=== PATIENT | female | born 1930 | race Caucasian/White ===

== ENCOUNTER → 2018-08-04 08:58 | Outpatient (CLI) | payer MEDICARE, OTHER | END | disposition home or self-care (01) | LOC: D.RAD 08:00 | DX: R19.4 Change in bowel habit (principal) ==

== ENCOUNTER → 2018-08-14 10:06 | Outpatient (CLI) | payer MEDICARE, OTHER | END | disposition home or self-care (01) | LOC: D.CT 10:06 | DX: R10.9 Unspecified abdominal pain (principal) ==

== ENCOUNTER → 2018-08-23 09:46 | Outpatient (CLI) | payer MEDICARE, OTHER | END | disposition home or self-care (01) | LOC: D.US 09:46 | DX: N28.1 Cyst of kidney, acquired (principal) ==

== ENCOUNTER → 2018-09-12 07:35 | Outpatient (CLI) | payer MEDICARE, OTHER | END | disposition home or self-care (01) | LOC: D.MRI 07:35 → EDSEX 07:35 → D.MRI 08:00 | DX: N28.9 Disorder of kidney and ureter, unspecified (principal) ==

== ENCOUNTER 2020-06-19 11:48 | Day surgery (SDC) | payer MEDICARE, OTHER ==
[~2020-06-19] VITALS: Ht 175.3 cm; Wt 76.7 kg
--- NOTE | ~2020-06-19 | HEMODYNAMI ---
PATIENT:PRIYANKA WASHINGTON MEDICAL RECORD: [id number] : 32 LOCATION:[facility] ADMISSION DATE: 06/19/20 Generatedon:06/19/202015:13 Patient name: PRIYANKA WASHINGTON Patient #: [id number] SSN: : 1930 Date of study: 06/19/2020 Page: Of Hemodynamic Procedure Report Patient Data Patient Demographics Procedure consent was obtained First Name: PRIYANKA Gender: Male Last Name: FELIX : 1930 Middle Initial: T Age: 89 year(s) Patient #: [id number] Race: Unknown Additional ID: [id number] Contact details Address: [address] [place] [address] State: [place] City: [place] Zip code: [address] Past Medical History Allergies: No known allergies Admission Admission Data Admission Date: 06/19/2020 Admission Time: 11:48 Procedure Procedure Types Cath Procedure Diagnostic Procedure PPM/ICD PPM Dual Implant Sedation Charges Moderate Sedation up to 15 minutes Procedure Description Procedure Date Procedure Date: 06/19/2020 Procedure Start Time: 14:46 Procedure Staff Name Function Good Fraire MD Performing Physician Kesha Ramos RT Monitor Evelyne Pink RT Scrub Mesfin Francisco MD Assisting physician Christophe Hough RN Nurse Procedure Data Cath Procedure Fluoroscopy Diagnostic fluoroscopy Total fluoroscopy Time: 1.4 time: 1.4 min min Diagnostic fluoroscopy Total fluoroscopy dose: 27 dose: 27 mGy mGy Estimated blood loss: 10 ml Procedure Complications No complications Procedure Medications Medication Administration Route Dosage Oxygen etCO2 Nasal cannula 2 l/min Lidocaine 1% added to field 20 Ancef (1Gm/50ml NS) I.V.P.B 1 g Ancef Irrigation Topical 1 g (1gm/500ml NS) 0.9% NaCl I.V. 50 ml/hr Versed I.V. 2 mg Fentanyl I.V. 50 mcg Versed I.V. 1 mg Fentanyl I.V. 50 mcg Versed I.V. 1 mg Hemodynamics Rest Heart Rate: 49 (bpm) Snapshots Pre Cath Intra NCS Post Cath Vital Signs Time Heart Resp SPO2 etCO2 NIBP (mmHg) Rhythm Pain Sedation Rate (ipm) (%) (mmHg) Status Level (bpm) 14:32:36 47 16 99 0 175/79(152) SB (Missing) 10(A) 14:37:57 50 25 96 0 146/78(95) SB (Missing) 10(A) 14:43:04 47 12 99 32.5 132/61(101) SB (Missing) 10(A) 14:47:16 50 14 93 0 144/69(113) SB (Missing) 9(A) 14:51:32 49 15 98 0 129/66(105) SB (Missing) 9(A) 14:55:42 56 10 98 32.5 146/73(104) SB (Missing) 9(A) 14:59:54 80 23 97 26.6 121/82(101) SB (Missing) 9(A) 15:04:02 62 10 98 8.8 124/68(114) SB (Missing) 9(A) 15:08:06 79 13 98 24.3 110/79(94) SB (Missing) 10(A) Medications Time Medication Route Dose Verified Delivered Reason Notes Effectiv eness by by 14:38:58 Oxygen etCO2 2 Good Cookory used for Nasal l/min [facility] John procedure cannula MD PARK 14:39:35 Lidocaine added 20ml Good Spiritism for local 1% to vial St Clint Francisco MD anesthetic field x 2 14:39:46 Ancef I.V.P.B 1 g Good Garciaie used for (1Gm/50ml Juno Hough deputy of counter intelligence NS) 14:39:53 Ancef Topical 1 g Good Buffie used for Irrigation JunoClint Hough [employer] of counter [employer] (1gm/500ml NS) 14:40:07 0.9% NaCl I.V. 50 Good Garciaie Per ml/hr St Clint Hough RN physician 14:45:47 Versed I.V. 2 mg Good Buffie for Juno Hough RN sedation 14:45:52 Fentanyl I.V. 50 Good Buffie for mcg JunoClint Hough RN sedation 14:50:35 Versed I.V. 1 mg Good Buffie for JunoClint Hough RN sedation 14:50:40 Fentanyl I.V. 50 Good [facility] [place] Hough RN sedation 14:55:01 Versed I.V. 1 mg Good S[address] for St Clint Hough RN sedation Procedure Log Time Note 14:09:55 Informed consent obtained and on chart 14:10:20 Procedure Status PPM/ Gen Change/ Lead Revision/ Temp. 14:10:22 Time tracking: Regular hours (M-F 7:00 - 5:00) 14:10:26 Plan of Care:Hemodynamics will remain stable., Cardiac rhythm will remain stable., Comfort level will be maintained., Respiratory function will remain adequate., Patient/ family verbilizes understanding of procedure., Procedure tolerated without complication., Recovers from procedure without complications.. 14:10:30 Kesha Ramos RT(R) sent for patient. Start room use. 14:10:38 H&P Date Dictated: 06/11/2020 Within 30 days and on chart., H&P Addendum completed by physician on day of procedure. (MUST COMPLETE FOR ALL OUTPATIENTS). 14:21:36 Patient received from Pre/Post Procedure Room to CCL 3 Alert and oriented. Tansferred to table in Supine position. 14:31:20 Warm blankets applied, and rober hugger turned on for patient comfort. 14:31:21 Correct patient and procedure confirmed by team. 14:31:21 ECG and BP/O2 sat monitors applied to patient. 14:31:22 Vital chart was started 14:31:23 Pre-procedure instructions explained to patient. 14:31:23 Pre-op teaching completed and patient verbalized understanding. 14:36:23 Family in patients room. 14:36:24 Patient NPO since Midnight. 14:36:46 Patient allergic to No known allergies 14:36:48 Is patient on blood thinner?No 14:36:50 Patient diabetic? Yes. 14:36:52 If diabetic: On Metformin? Yes 14:36:54 If on Metformin: Last Dose? 06/17/2020 14:36:57 Previous problem with sedation/anesthesia? No ? 14:36:58 Snore? Yes 14:36:59 Sleep apnea? No 14:37:00 Deviated septum? No 14:37:01 Opens mouth fully? Yes 14:37:02 Sticks out tongue? No 14:37:04 Airway obstruction? No ? 14:37:06 Dentures? No ? 14:37:11 Patient pain scale 0/10 ?. 14:37:29 IV patent on arrival in left antecubital with 0.[facility]% [facility] at [facility]. 14:37:42 Left chest area was prepped with chlora-prep and draped in sterile fashion 14:37:43 Alarms reviewed by R. N. 14:37:43 Sharps counted by scrub and verified by R.N. 14:37:52 Medtronic footwear sales representative CHARLOTTE AQUINO present for procedure. 14:37:57 Use device set CARMEN PPM 14:37:58 2-0 Ticron Multipack ([id number]) opened to sterile field. 14:37:58 3-0 Vicryl Single Pack [id number] opened to sterile field. 14:37:59 5-0 Monocryl PS2 [id number] opened to sterile field. 14:37:59 Cautery Tip Bobbin Winder Tender opened to sterile field. 14:38:00 Cautery Pushbutton Pencil opened to sterile field. 14:38:19 Mepilex Dressing ([id number]) opened to sterile field. 14:38:25 Immobilizer Large opened to sterile field. 14:38:27 Medtronic 4074-52 PPM Lead opened to sterile field. 14:38:58 Oxygen 2 l/min etCO2 Nasal cannula was administered by Good Fraire MD; used for procedure; Verbal order read back and verified. 14:39:[address] Generator [id number] opened to sterile field. 14:39:35 Lidocaine 1% 20ml vial x 2 added to field was administered by Mesfin Francisco MD; for local anesthetic; Verbal order read back and verified. 14:39:35 Pre sharps counted by scrub and verified by RN: Sutures: 7; Sponges: 5; Stick needles: 2; Skin needles: 2; Blade: 1; Cautery: 1 14:39:36 Grounding pad site Left thigh. 14:39:44 Grounding pad site free from injury. 14:39:46 Ancef (1Gm/50ml NS) 1 g I.V.P.B was administered by Christophe Hough RN; used for procedure; Verbal order read back and verified. 14:39:53 Ancef Irrigation (1gm/500ml NS) 1 g Topical was administered by Christophe Hough RN; used for procedure; Verbal order read back and verified. 14:40:07 0.9% NaCl 50 ml/hr I.V. was administered by Christophe Hough RN; Per physician; Verbal order read back and verified. 14:42:40 Baseline sample Acquired. 14:42:45 Rhythm: sinus bradycardia 14:42:46 Full Disclosure recording started 14:42:50 --------ALL STOP TIME OUT------ 14:42:52 Final Timeout: patient, procedure, and site verified with staff and physician. All members of the team are in agreement. 14:42:57 Left chest site verified by team. 14:43:00 Fire Safety Assessment: A--An alcohol-based skin anteseptic being used preoperatively., B--The operative or invasive procedure is being performed above the xiphoid process or in the oropharynx., C--Open oxygen or nitrous oxide is being used. 14:43:03 Physical assessment completed. ASA score P 2 - A patient with mild systemic disease as per Good Fraire MD. 14:43:07 Sedation plan: IV Moderate Sedation Medication:Versed, Fentanyl 14:45:47 Versed 2 mg I.V. was administered by Christophe Hough RN; for sedation; Verbal order read back and verified. 14:45:52 Fentanyl 50 mcg I.V. was administered by Christophe Hough RN; for sedation; Verbal order read back and verified. 14:46:15 Lidocaine 1% was administered to left subclavicular area by Good Fraire MD . 14:47:35 Incision made to left subclavicular area. 14:50:35 Versed 1 mg I.V. was administered by Christophe Hough RN; for sedation; Verbal order read back and verified. 14:50:40 Fentanyl 50 mcg I.V. was administered by Christophe Hough RN; for sedation; Verbal order read back and verified. 14:51:25 Generator pocket made/opened. 14:51:27 Left subclavian vein accessed with 7Fr Peel Away Sheath. 14:51:30 Left subclavian vein accessed with 7Fr Peel Away Sheath. 14:52:11 Medtronic 4574-53 PPM Lead opened to sterile field. 14:53:04 Ventricular lead inserted and advanced. 14:53:06 Atrial lead inserted and advanced. 14:55:01 Versed 1 mg I.V. was administered by Christophe Hough RN; for sedation; Verbal order read back and verified. 14:55:04 Ventricular lead positioned. 14:55:06 Ventricular lead tested. 14:55:45 Atrial lead positioned. 14:55:47 Atrial lead tested. 14:56:52 PPM Dual was attached to lead(s) and inserted into pocket. 14:56:55 PPM Dual was inserted subcutaneously to left chest. 14:56:59 Atrial lead attachment was completed with 2-0 ticron. 14:57:03 Ventricular lead attachment was completed with 2-0 ticron. 14:57:08 Generator was sutured in place with 2-0 ticron. 14:57:11 Device pocket was irrigated with Ancef. 14:59:49 Subcutaneous closure was completed with 3-0 vicryl. 15:01:22 Skin closure was completed with 5-0 monocryl. 15:03:16 Parameters-- Generator: Mode: DDDR. Lower Rate: 60bpm. Upper Rate: 130bpm. 15:03:52 Parameters--Atrial P/R Wave: 3.4mV. Current: .2mA; Threshold: .5V; Impedence: 578OHMS. 15:04:21 Parameters--Ventricular P/R Wave: 6.8mV. Current: .5mA; Threshold: .6V; Impedence: 1372OHMS. 15:06:30 Lt Chest incision was dressed with Mepilex dressing. 15:06:50 Post sharps counted by scrub and verified by RN: Sutures: 7; Sponges: 5; Stick needles: 2; Skin needles: 2; Blade: 1; Cautery: 1 15:06:54 Procedure ended.(Physican Out) 15:08:22 Fluoroscopy time 01.40 minutes. 15:08:29 Fluoroscopy dose: 27 mGy 15:08:29 Flurop Dose total: 27 15:08:36 Dose Area Product 325 mGy/cm. 15:08:49 Post-procedure physical assessment completed. ASA score P 2 - A patient with mild systemic disease as per Good Fraire MD. 15:08:54 Post procedure rhythm: sinus rhythm , paced 15:08:58 Estimated blood loss: 10 ml 15:08:59 Post procedure instruction explained to patient.Patient verbalizes understanding. 15:08:59 Patient needs reinforcement of post procedure teaching. 15:09:18 Procedure type changed to Cath procedure, Diagnostic procedure, PPM/ICD, PPM Dual Implant, Sedation Charges, Moderate Sedation up to 15 minutes 15:09:42 Procedure and supply charges have been captured, reviewed, submitted and are correct. 15:09:46 Procedure Complication : No complications 15:09:50 Vital chart was stopped 15:09:53 Operative report dictated upon procedure completion. 15:09:53 See physician's report for complete and final results. 15:09:55 Report given to Pre/Post Procedure Room. 15:09:57 Patient transfered to Pre/Post Procedure Room with Bed. 15:10:08 End room use (Document Last) Device Usage Item Name Manufacture Quantity Catalog Hospital Part Current Minima l Lot# / Number Charge Number Stock Stock Serial# Code 2-0 Ticron Ethicon 5 [id number] [id number] 5 Multipack ([id number]) 3-0 Vicryl Ethicon 1 [id number] 515858 365459 5 Single Pack [id number] 5-0 Monocryl Ethicon 1 [id number] [id number] 859394 530743 5 PS2 Y495G Cautery Tip Microtek 1 [id number] 437684 522867 634260 5 Bobbin Winder Tender [employer] Cautery Microtek 1 [id number] 068018 53327 675532 5 Push[employer] Pencil Mepilex Cardinal 1 997241 015035 483463 855532 5 [facility] ([id number]) Immobilizer Cardinal 1 [id number] 502982 473993 089150 5 [facility] Medtronic Medtronic 1 4074-52 264103 481560 714928 5 [id number] 4074-52 PPM EXP:07/06/20 Lead Medtronic Medtronic 1 [id number] 147817 [id number] 659928 [id number] EXP:10/10/21 Generator [id number] Medtronic Medtronic 1 4574-53 786059 187075 904949 5 [id number] 4574-53 PPM EXP:07/13/20 Lead Signature Audit [place] Stage Time Signature Unsigned Intra-Procedure 06/19/2020 Kesha Ramos 3:12:58 PM RT(R) Intra-Procedure 06/19/2020 Christophe Hough RN 3:13:22 PM Intra-Procedure 06/19/2020 Good Knight 3:13:36 PM Clint [facility] [address] [place] [address]
--- NOTE | ~2020-06-19 | OP ---
PATIENT NAME: PRIYANKA WASHINGTON MEDICAL RECORD: [id number] :31 LOCATION:D.CAT ADMISSION DATE: SURGEON: SITA MORALES MD DATE OF OPERATION: 06/19/2020 PREOPERATIVE DIAGNOSES: 1. Sick sinus syndrome. 2. Symptomatic bradycardia. POSTOPERATIVE DIAGNOSES: 1. Sick sinus syndrome. 2. Symptomatic bradycardia. PROCEDURE: 1. Left subclavian vein dual-lead pacemaker placement. 2. Fluoroscopic interpretation. SURGEON: Sita Morales MD CO-SURGEON: Good Greene MD REPORT OF PROCEDURE: The patient's left chest was prepped and draped in sterile fashion. A 20 mL of 1% lidocaine with epinephrine was infused into the surrounding tissues. A transverse incision was made on the left superior lateral chest and a subcutaneous pouch was made over the pectoral fascia. Snyder were used to cannulate the left subclavian vein and guidewires were advanced times 2. Fluoro was used to note that the wires were in good position in the venous system. Dilator trocar devices were placed over the wires and the wires and dilators were removed. The leads were advanced through the trocars until they rested in the superior vena cava. Dr. Greene then positioned the leads appropriately in the atrium and ventricle. Once the leads were noted to be functioning appropriately, then they were sutured into place with 2-0 Ti-Cron. The leads were fixed to the pacemaker, which was placed into the subcutaneous pouch and sutured to the pectoral fascia with a single interrupted 2-0 Ti-Cron. The wound was then irrigated out with antibiotic solution. Subcutaneous tissues were reapproximated with interrupted 3-0 Vicryl and the skin was closed with running subcutaneous 5-0 Monocryl. COMPLICATIONS: None. CONDITION: Stable. ANESTHESIA: Local MAC. BLOOD LOSS: Minimal. TRANSINT:[id number] Voice Confirmation ID: [id number] DOCUMENT ID: [id number] OPERATIVE REPORT [id number] PRIYANKA WASHINGTON SITA MORALES MD CC: [id number] DICTATION DATE: 06/19/20 151 UNIVERSITY LIBRARIAN: 06/19/20 1750 [facility] 06/19/20 [place] [address]
[2020-06-19 13:10] VITALS: BP 159/72; Ht 175.3 cm; Wt 76.7 kg
[2020-06-19 13:10] LABS: HEMATOCRIT 42.3 % (42.0-54.0); HEMOGLOBIN 14.1 g/dL (13.5-17.5); MCH 29.9 pg (26.0-34.0); MCHC 33.3 g/dL (31.0-37.0); MCV 89.8 fL (80.0-100.0); MEAN PLATELET VOLUME 9.3 fL (7.4-10.4); RBC 4.71 10x6/uL (4.20-6.10); RDW 14.5 % (11.5-14.5); WBC 7.7 10x3/uL (4.8-10.8)
[2020-06-19 13:24] LABS: APTT 28.9 SECONDS (22.8-39.4); CALC OSMOLALITY 273 mosm/kg (275-300); CALCIUM 9.1 mg/dL (8.5-10.1); CARBON DIOXIDE 29.2 mmol/L (21.0-32.0); CHLORIDE - SERUM 102 mmol/L (98-107); GLUCOSE 96 mg/dL (74-106); INR 1.01 (0.85-1.17); POTASSIUM - SERUM 4.1 mmol/L (3.5-5.1); PROTIME 13.3 SECONDS (11.6-15.0); SODIUM 136 mmol/L (136-145); UREA NITROGEN 19 mg/dL (7-18); eGFR NON AFRICAN AMERICAN 75 mL/min (90-120)
[2020-06-19] MEDS ORDERED: GLUCOPHAGE500 MG PO (15:16)
--- NOTE | 2020-06-19 15:20 | NUR ---
PT REC'D TO ROOM 3 VIA STRETCHER FROM EGG TRAYER. MONITORS ESTAB, AT BS. SEE CYLINDER BLOCK MECHANIC, ALARMS ON AND C/L IN REACH.
--- NOTE | 2020-06-19 15:35 | NUR ---
L CHEST PPM SITE WITH DSG C/D/I, PCXR DONE. CM - AV PACED. VSS. PT DENIES PAIN OR NEEDS. ALARMS ON AND C/L IN REACH.
--- NOTE | 2020-06-19 16:05 | NUR ---
VSS. L CHEST DSG C/D/I, NO S/S DRAINAGE OR SWELLING. PIV D/C'D INTACT, DSG APPLIED. PT ASSISTED UP TO GET DRESSED WITH AND MYSELF. INSTRUCTED ON PLACEMENT OF SLING. ALL D/C INSTRUCTIONS REVIEWED AND UNDERSTANDING VERBALIZED.
--- NOTE | 2020-06-19 16:15 | NUR ---
PT D/C'D TO PRIVATE VEHICLE VIA , PT HAS ALL PAPERWORK AND BELONGINGS.
--- NOTE | 2020-06-20 08:09 | OP ---
PATIENT NAME: POLO WASHINGTON MEDICAL RECORD: [id number] :32 LOCATION:D.CAT ADMISSION DATE: SURGEON: SHEILA MAGALLANES MD DATE OF OPERATION: 06/19/2020 PROCEDURE: Lead portion of permanent pacemaker placement. 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 SURGEON: Mesfin Francisco MD DESCRIPTION OF PROCEDURE: After left subclavian vein was cannulated via modified Seldinger technique via Dr. Francisco, first under fluoroscopic guidance, I placed the RV lead in the RV apex without difficulty. After adequate R waves and thresholds were obtained, I then attached the right atrial lead into the right atrial appendage without difficulty. After adequate P waves and thresholds were obtained, the leads were attached to the appropriate pole in the generator. Pocket was closed via Dr. Francisco. IMPRESSION: Successful lead portion of permanent pacemaker placement on Polo [place]. ESTIMATED BLOOD LOSS: Minimal. COMPLICATIONS: None. DISPOSITION: To the floor, stable. NTS:[id number] Voice Confirmation ID: [id number] DOCUMENT ID: [id number] SHEILA MAGALLANES MD at 0809 CC: [id number] DICTATION DATE: 06/19/20 1502 BUSINESS UNIT CONTROLLER: 06/19/20 1758 [facility] 06/19/20 [facility] [address] [place] [address]
== END 2020-06-19 16:15 | disposition home or self-care (01) ==
LOC: D.CATH 11:48
PROVIDERS: ATTEND Internal Medicine Interventional Cardiology
DX: I49.5 Sick sinus syndrome (principal); I45.19 Other right bundle-branch block; I44.4 Left anterior fascicular block